=== PATIENT | female | born 1985 | race Caucasian/White ===

== ENCOUNTER → 2023-05-29 | Outpatient (CLI) | payer BC, SELFPAY ==
[2023-05-29 15:23] LABS: Prolactin 9.6 ng/mL; Thyroid Stim Hormone (TSH) 2.32 uIU/mL (0.358-3.74)
[2023-06-03 16:07] LABS: Testosterone Free 8.7 pg/mL (0.0-4.2)
== END | disposition home or self-care (01) ==
PROVIDERS: Referring Provider Nurse Practitioner Women's Health; Visit Provider Nurse Practitioner Women's Health
DX: Z31.9 Encounter for procreative management, unspecified (principal); N97.9 Female infertility, unspecified
CPT/HCPCS: 36415; 82627; 84146; 84402; 84443; 82626

== ENCOUNTER → 2023-06-13 | Outpatient (CLI) | payer BC, SELFPAY ==
[2023-06-16 08:13] LABS: Chlamydia By Nucleic Acid AMP Negative (Negative); Gonococcus By Nucleic Acid AMP Negative (Negative)
[2023-06-18 16:09] LABS: HPV APTIMA, High Risk Negative (Negative)
== END | disposition home or self-care (01) ==
PROVIDERS: Referring Provider Nurse Practitioner Women's Health; Visit Provider Nurse Practitioner Women's Health
DX: Z11.3 Encounter for screening for infections with a predominantly sexual mode of transmission (principal); Z12.4 Encounter for screening for malignant neoplasm of cervix
CPT/HCPCS: 87491; 87591; 87624; 88175; G0145

== ENCOUNTER → 2023-07-12 | Outpatient (CLI) | payer BC, SELFPAY ==
[2023-07-17 00:07] LABS: Chlamydia By Nucleic Acid AMP Negative (Negative); Gonococcus By Nucleic Acid AMP Negative (Negative)
== END | disposition home or self-care (01) ==
PROVIDERS: Referring Provider Advanced Practice Midwife; Visit Provider Advanced Practice Midwife
DX: Z34.90 Encounter for supervision of normal pregnancy, unspecified, unspecified trimester (principal); Z3A.00 Weeks of gestation of pregnancy not specified
CPT/HCPCS: 87086; 87491; 87591

== ENCOUNTER → 2023-07-26 | Outpatient (CLI) | payer BC, SELFPAY ==
[2023-07-26 09:37] LABS: Absolute Lymphocyte Count 3.01 X10^3/uL (0.83-4.51); Absolute Neutrophil Count 5.8 X10^3/uL (2.0-7.7); Basophil# 0.04 X10^3/uL; Basophil% 0.4 % (0-1); Eosinophil# 0.44 X10^3/uL; Eosinophils% 4.4 % (0-5); Hematocrit 43.8 % (37-47); Hemoglobin 14.8 g/dL (12.0-15.0); Lymphocyte # 3.01 X10^3/ul (0.83-4.51); Lymphocyte % 30.2 % (19-41); Mean Corp Hgb Conc 33.8 g/dL (32-36); Mean Corpuscular Hgb 29.8 pg (27.0-32.0); Mean Corpuscular Volume 88.3 fL (81-99); Mean Platelet Vol. 10.4 fl (6.2-12.0); Monocyte# 0.68 X10^3/uL; Monocyte% 6.8 % (0-10); NRBC Flagged by Analyzer 0 % (0-5); Neutrophil # 5.76 X10^3/uL (2.7-7.7); Neutrophil % 57.8 % (47-70); Platelet Count 212 K/mm3 (150-450); RBC Distribution Width CV 12.3 % (11.6-14.6); RBC Distribution Width SD 39.7 fl (35.1-43.9); Red Blood Count 4.96 M/mm3 (4.2-5.4)
[2023-07-26 09:52] LABS: Hemoglobin A1c 4.9 % (3.8-5.6)
[2023-07-26 10:35] LABS: HIV - WCH Non-Reactive (Nonreactive); Hepatitis B Surface Antigen Non-Reactive (Nonreactive); Hepatitis C Antibody Non-Reactive (Nonreactive); Rubella IgG Reactive (Nonreactive); Syphilis Antibodies Non-reactive
== END | disposition home or self-care (01) ==
LOC: PAVLAB 09:19
PROVIDERS: Referring Provider Advanced Practice Midwife; Visit Provider Advanced Practice Midwife
DX: Z34.90 Encounter for supervision of normal pregnancy, unspecified, unspecified trimester (principal); Z83.3 Family history of diabetes mellitus; Z3A.00 Weeks of gestation of pregnancy not specified
CPT/HCPCS: 36415; 83036; 85025; 86703; 86762; 86780; 86803; 86850; 86900; 86901; 87340

== ENCOUNTER → 2023-09-19 | Outpatient (CLI) | payer BC, SELFPAY ==
[2023-09-19 12:55] LABS: Absolute Lymphocyte Count 2.47 X10^3/uL (0.83-4.51); Absolute Neutrophil Count 5.2 X10^3/uL (2.0-7.7); Basophil# 0.02 X10^3/uL; Basophil% 0.2 % (0-1); Eosinophil# 0.26 X10^3/uL; Hematocrit 42.7 % (37-47); Hemoglobin 14.7 g/dL (12.0-15.0); Lymphocyte # 2.47 X10^3/ul (0.83-4.51); Lymphocyte % 28.8 % (19-41); Mean Corp Hgb Conc 34.4 g/dL (32-36); Mean Corpuscular Volume 87.1 fL (81-99); Mean Platelet Vol. 10.8 fl (6.2-12.0); Monocyte# 0.56 X10^3/uL; Monocyte% 6.5 % (0-10); NRBC Flagged by Analyzer 0 % (0-5); Neutrophil # 5.23 X10^3/uL (2.7-7.7); Neutrophil % 61.1 % (47-70); Platelet Count 186 K/mm3 (150-450); RBC Distribution Width CV 12.3 % (11.6-14.6); RBC Distribution Width SD 38.9 fl (35.1-43.9); White Blood Count 8.6 K/mm3 (4.4-11.0)
[2023-09-19 13:16] LABS: Protein:Creat Ratio 172 mg/g CRE (0-200)
[2023-09-19 13:35] LABS: ALB/GLOB Ratio 0.8 RATIO (0.9-2.4); AST(SGOT) 14 U/L (15-37); Alanine Aminotransfer ALT/SGPT 17 U/L (13-56); Alkaline Phosphatase 65 U/L (45-117); Anion Gap 7 (5-15); BUN 6 mg/dL (7-18); BUN/Creat Ratio 8.6 RATIO (10-20); Calcium,Total 9.1 mg/dL (8.5-10.1); Chloride 109 mmol/L (98-107); EST Glomerular Filtration Rate 100 mL/min (>60); Est Glom Filt Rate - Afr Amer 122 mL/min (>60); Globulin 3.6 g/dL (2.2-4.2); Glucose 79 mg/dL (74-106); Potassium 3.3 mmol/L (3.5-5.1); Protein, Total 6.6 g/dL (6.4-8.2); Sodium Level 140 mmol/L (136-145)
[2023-09-19 13:52] LABS: Protein, Urine (Random) 11.3 mg/dL (<11.9); Protein:Creat Ratio 130 mg/g CRE (0-200)
== END | disposition home or self-care (01) ==
PROVIDERS: Referring Provider Obstetrics & Gynecology; Visit Provider Obstetrics & Gynecology
DX: O16.9 Unspecified maternal 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, unspecified trimester (principal); Z3A.00 Weeks of gestation of pregnancy not specified
CPT/HCPCS: 36415; 80053; 82570; 84156; 85025

== ENCOUNTER → 2023-09-21 | Outpatient (CLI) | payer BC, SELFPAY ==
--- NOTE | 2023-09-21 09:02 | EKG12_ITS ---
Test Reason : MATERNAL HTN Blood Pressure : / mmHG Vent. Rate : 084 BPM Atrial Rate : 084 BPM P-R Int : 158 ms QRS Dur : 082 ms QT Int : 350 ms P-R-T Axes : 071 054 -31 degrees QTc Int : 413 ms Normal sinus rhythm with sinus arrhythmia ST & T wave abnormality, consider inferior ischemia Abnormal ECG Confirmed by ELEANOR PURI, MAKAYLA ([id number]), photograph editor MARIE GRACIA ([id number]) on 09/25/2023 2:03:37 PM Referred By: Elaine Banda Confirmed By:RASTA WEBSTER MD
== END | disposition home or self-care (01) ==
LOC: PSN 09:01
PROVIDERS: Referring Provider Obstetrics & Gynecology; Visit Provider Obstetrics & Gynecology
DX: O16.9 Unspecified maternal 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, unspecified trimester (principal)
CPT/HCPCS: 93005

== ENCOUNTER → 2023-11-19 | Outpatient (CLI) | payer BC, SELFPAY ==
--- NOTE | 2023-11-19 11:36 | US_ITS ---
EXAM: US , LIMITED CLINICAL INDICATION: Monthly growth, HTN TECHNIQUE: Real-time limited ultrasound of the maternal uterus with image documentation. COMPARISON: No relevant prior studies available. FINDINGS: FETUS: Estimated age: 25 weeks, 0 days. JOANNE: 03/03/2022. EFW: Estimated weight: 783 g (42%). BPD: 6.23 cm. HC: 23.08 cm. AC: 20.67 cm. FL: 4.53 cm. POSITION: presentation: Breech. HEART RATE: heart rate: 141 bpm. PLACENTA: Anterior placenta. AMNIOTIC FLUID: Amniotic fluid volume is normal with maximal vertical pocket of 5.2 cm. CERVIX: The cervix measures 3.3 cm and is closed. ADNEXA: The maternal adnexa are not visualized. US/OB Limited With Biometrics IMPRESSION: No acute findings. Single viable IUP of approximately 25 weeks, 0 days with a weight of 783 g. Electronically Signed: Nirmal Mehta DO at 21:15 EDT ,
== END | disposition home or self-care (01) ==
PROVIDERS: Referring Provider Obstetrics & Gynecology; Visit Provider Obstetrics & Gynecology
DX: O09.519 Supervision of elderly primigravida, unspecified trimester (principal); O16.9 Unspecified maternal 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, unspecified trimester; Z3A.00 Weeks of gestation of pregnancy not specified
CPT/HCPCS: 76816

== ENCOUNTER → 2023-11-29 | Outpatient (CLI) | payer BC, SELFPAY ==
--- NOTE | 2023-11-29 13:59 | ECHOD_ITS ---
Reason For Study: ABN EKG Procedure This was a 2D Doppler, Color Flow transthoracic echocardiogram. Exam performed in department. Left Ventricle Normal LV size. The estimated ejection fraction is 55 %. No evidence for diastolic dysfunction. No regional wall motion abnormalities noted. Right Ventricle Normal RV size. Normal systolic function. Atria The left and right atria are normal. No doppler evidence for ASD. Mitral Valve There is no mitral valve stenosis. No mitral valve insufficiency. Tricuspid Valve There is no tricuspid stenosis. Unable to estimate RV systolic pressure due to inadequate jet, pulmonary artery pressure probably normal. Aortic Valve Trisinus/trileaflet aortic valve. There is no aortic stenosis. No aortic valve insufficiency. Pulmonic Valve There is no pulmonic valvular stenosis. No pulmonic valve insufficiency. Great Vessels Normal aortic root. Pericardium/Pleural No pericardial effusion. MMode/2D Measurements & Calculations LVIDd: 4.3 cm IVSd: 1.0 cm Ao root diam: 2.8 cm LVIDs: 3.2 cm LVPWd: 1.2 cm RVDd: 3.0 cm FS: 26.2 % LAV(MOD-bp): 38.5 ml LVAd ap4: 27.8 cm2 SV(MOD-sp4): 46.7 ml LAV(MOD-bp) Indexed: 20.8 ml/m2 LVLd ap4: 8.1 cm LAV(MOD-sp2): 42.3 ml EDV(MOD-sp4): 81.7 ml LAV(MOD-sp4): 29.6 ml EDV(sp4-el): 81.1 ml LVAs ap4: 16.6 cm2 LVLs ap4: 7.0 cm ESV(MOD-sp4): 35.0 ml ESV(sp4-el): 33.1 ml EF(MOD-sp4): 57.2 % EF(sp4-el): 59.1 % SV(sp4-el): 48.0 ml LA A4 area: 12.3 cm2 LA dimension(2D): 3.5 cm RA A4 area: 10.2 cm2 TAPSE: 2.2 cm Time Measurements MV dec time: 0.10 sec Doppler Measurements & Calculations MV E max canelo: 54.4 cm/sec Lat Peak E' Canelo: 17.2 cm/sec Med Peak E' Canelo: 7.9 cm/sec MV A max canelo: 47.4 cm/sec E/E' lat: 3.2 E/E' med: 6.9 MV E/A: 1.1 MV V2 max: 55.6 cm/sec Ao V2 max: 110.8 cm/sec MV max P.2 mmHg MV dec slope: 585.8 cm/sec2 Ao max P.9 mmHg MV V2 mean: 41.1 cm/sec Ao V2 mean: 80.6 cm/sec MV mean P.72 mmHg Ao mean P.9 mmHg MV V2 VTI: 21.0 cm Ao V2 VTI: 23.5 cm AV (velocity ratio): 0.92 LV V1 max: 99.1 cm/sec PA V2 max: 90.6 cm/sec LV V1 max P.9 mmHg PA V2 mean: 63.7 cm/sec LV V1 mean P.3 mmHg LV V1 mean: 72.2 cm/sec LV V1 VTI: 21.7 cm ECHO/Echo Complete Interpretation Summary The estimated ejection fraction is 55 %. No evidence for diastolic dysfunction. Ordering Physician: Kwame Scott Referring Physician: Kwame Scott Performed By: Ankita Dumont RCS
== END | disposition home or self-care (01) ==
LOC: CVS 13:59
PROVIDERS: Referring Provider Internal Medicine Cardiovascular Disease; Visit Provider Internal Medicine Cardiovascular Disease
DX: R94.31 Abnormal electrocardiogram [ECG] [EKG] (principal)
CPT/HCPCS: 93306

== ENCOUNTER → 2023-12-07 | Outpatient (CLI) | payer BC, SELFPAY ==
[2023-12-07 13:17] LABS: Absolute Lymphocyte Count 1.99 X10^3/uL (0.83-4.51); Absolute Neutrophil Count 5.6 X10^3/uL (2.0-7.7); Basophil# 0.02 X10^3/uL; Basophil% 0.2 % (0-1); Eosinophil# 0.19 X10^3/uL; Eosinophils% 2.3 % (0-5); Hematocrit 39.2 % (37-47); Hemoglobin 13.7 g/dL (12.0-15.0); Lymphocyte # 1.99 X10^3/ul (0.83-4.51); Lymphocyte % 24.1 % (19-41); Mean Corp Hgb Conc 34.9 g/dL (32-36); Mean Corpuscular Hgb 30.6 pg (27.0-32.0); Mean Corpuscular Volume 87.7 fL (81-99); Mean Platelet Vol. 10.6 fl (6.2-12.0); Monocyte# 0.39 X10^3/uL; Monocyte% 4.7 % (0-10); NRBC Flagged by Analyzer 0 % (0-5); Neutrophil # 5.64 X10^3/uL (2.7-7.7); Neutrophil % 68.3 % (47-70); Platelet Count 170 K/mm3 (150-450); RBC Distribution Width SD 41.4 fl (35.1-43.9); Red Blood Count 4.47 M/mm3 (4.2-5.4); White Blood Count 8.3 K/mm3 (4.4-11.0)
[2023-12-07 13:34] LABS: Glucose Challenge Gest 1H 50g 126 mg/dL (70-140)
[2023-12-07 14:08] LABS: HIV - WCH Non-Reactive (Nonreactive); Syphilis Antibodies Non-reactive
== END | disposition home or self-care (01) ==
LOC: LAB 13:00
PROVIDERS: Referring Provider Obstetrics & Gynecology; Visit Provider Obstetrics & Gynecology
DX: O09.90 Supervision of high risk pregnancy, unspecified, unspecified trimester (principal); Z13.1 Encounter for screening for diabetes mellitus; Z3A.00 Weeks of gestation of pregnancy not specified
CPT/HCPCS: 36415; 82950; 85025; 86703; 86780

== ENCOUNTER → 2023-12-17 | Outpatient (CLI) | payer BC, SELFPAY ==
--- NOTE | 2023-12-17 11:50 | US_ITS ---
EXAM: US , LIMITED CLINICAL INDICATION: Monthly growth TECHNIQUE: Real-time limited ultrasound of the maternal uterus with image documentation. COMPARISON: 11/19/2023 FINDINGS: GESTATIONAL AGE: Estimated gestational age: 29 weeks, 5 days. JOANNE: 02/27/2022. EFW: Estimated weight: 1221 g (16.1%). BPD: 7.54 cm, 30 weeks, 2 days, 73%. HC: 27.92 cm, 30 weeks, 4 days, 60%. AC: 23.64 cm, 28 weeks, 0 days, 13%. FL: 5.28 cm, 28 weeks, 1 day, 11%. POSITION: Breech presentation. HEART RATE: heart rate: 148 bpm. PLACENTA: Anterior placenta. AMNIOTIC FLUID: Amniotic fluid volume is 23.3 cm with maximal vertical pocket of 7.6 cm. CERVIX: The cervix is closed measuring 4.7 cm. US/OB Limited With Biometrics IMPRESSION: Single viable IUP. Although there has been interval growth, the estimated weight is now at the 16th percentile as compared to the 42nd percentile. Electronically Signed: Nirmal Mehta DO at 21:41 EDT ,
== END | disposition home or self-care (01) ==
LOC: US 11:35
PROVIDERS: Referring Provider Obstetrics & Gynecology; Visit Provider Obstetrics & Gynecology
DX: O09.519 Supervision of elderly primigravida, unspecified trimester (principal); R94.31 Abnormal electrocardiogram [ECG] [EKG]; Z3A.00 Weeks of gestation of pregnancy not specified
CPT/HCPCS: 76816

== ENCOUNTER 2023-12-18 17:08 | Inpatient (IN) | payer BC, SELFPAY ==
[2023-12-18] VITALS (13 sets, daily range): BP systolic 136–160; BP diastolic 72–95; PULSE 74–81; O2SAT 96–97; BMI 27.4
[2023-12-18 16:01] LABS: Hematocrit 38.7 % (37-47); Hemoglobin 13.6 g/dL (12.0-15.0); Mean Corp Hgb Conc 35.1 g/dL (32-36); Mean Corpuscular Volume 88.2 fL (81-99); Mean Platelet Vol. 11.2 fl (6.2-12.0); Platelet Count 147 K/mm3 (150-450); RBC Distribution Width CV 12.9 % (11.6-14.6); RBC Distribution Width SD 41.4 fl (35.1-43.9); Red Blood Count 4.39 M/mm3 (4.2-5.4); White Blood Count 8.5 K/mm3 (4.4-11.0)
[2023-12-18 16:48] LABS: Protein, Urine (Random) 7.1 mg/dL (<11.9); Protein:Creat Ratio 285 mg/g CRE (0-200)
--- OUTSIDE RECORDS SUMMARY | 2023-12-18 16:48 | XMS RPT_ITS | CCD ---
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 Negative. Gastrointestinal: Negative. Genitourinary: Negative. Skin: Negative. Neurological: Negative. Objective BP 155/102 Pulse 80 Temp 98.3 Resp 16 Ht 5' 6 (1.68m) Wt 150 lb (68.0kg) SpO2 97% LMP 02/15/2021 BMI 24.22 kg/(m2). BP- 144/98 Physical Exam Vitals reviewed. Constitutional: General: She is not in acute distress. Appearance: Normal appearance. She is not ill-appearing, toxic-appearing or diaphoretic. HENT: Head: Normocephalic and atraumatic. Right Ear: Ear canal and external ear normal. There is no impacted cerumen. Tympanic membrane is not erythematous or bulging. Left Ear: Ear canal and external ear normal. Drainage (white drainage at base of TM) present. Tympanic membrane is not erythematous or bulging. Nose: Rhinorrhea present. Mouth/Throat: Mouth: Mucous membranes are moist. Pharynx: Oropharynx is clear. Posterior oropharyngeal erythema (post nasal drip noted) present. No oropharyngeal exudate. Eyes: General: Right eye: No discharge. Left eye: No discharge. Extraocular Movements: Extraocular movements intact. Conjunctiva/sclera : Conjunctivae normal. Pupils: Pupils are equal, round, and reactive to light. Cardiovascular: Rate and Rhythm: Normal rate and regular rhythm. Heart sounds: Normal heart sounds. No murmur heard. No friction rub. No gallop. Pulmonary: Effort: Pulmonary effort is normal. No respiratory distress. Breath sounds: Normal breath sounds. No stridor. No wheezing, rhonchi or rales. Chest: Chest wall: No tenderness. Musculoskeletal: Cervical back: Neck supple. Skin: General: Skin is warm and dry. Capillary Refill: Capillary refill takes less than 2 seconds. Neurological: Mental Status: She is alert and oriented to person, place, and time. (more content not included)... Normal [facility] Up Resp Cultureon 03-04-2021 Up Resp Culture Final report Routine respiratory yoandy Performed at: - [facility] [id number] Lemon Picker: Dwayne Estrada PhD, Phone: [phone] Normal [facility] Comment on above: Performed By: #### M [id number] #### [place] [address] PROGRESSon 04-06-2019 PROGRESS HNO ID: [id number] Author: Emerson Pacheco Service: ? Author Type: Physician Type: Progress Notes Filed: 04/06/2019 4:15 PM Note Text: [facility] [place] [address] FIRST CARE REPORT Patient: SANDRA BOONE GALEN PACHECO-EMERSON Rodríguez M.D. [id number] F Status: REG POV FC Date of Service: 04/06/19 Report Date AND Time: 04/06/19 1600 HPI History Of Present Illness Chief Complaint Urinary Pain/Problem (FC) CC History Pt has had 4 days of increased urinary frequency, urgency, blood in urine. She denies vaginal drainage or discharge, back pain, fever. No hx UTI recently. She has been drinking fluids without difficulty and increased fluids only temporarily helps the urgency. No meds. Vital Signs Vital Signs First Last Result Date Time Result Date Time Pulse Ox 98 04/06 1600 98 04/06 1600 B/P 145/92 04/06 1600 145/92 04/06 1599 Temp 98.0 04/06 1599 98.0 04/06 1599 Pulse 97 04/06 1600 97 04/06 1600 Resp 16 04/06 1600 16 04/06 1599 Medications Reported Medications . (No Home Medications) Allergies Coded Allergies: No Known Drug Allergies (04/06/19) Patient Health History Medical Problems UTI (urinary tract infection) Surgical Problems History of tonsillectomy and adenoidectomy [place] teeth removed Family History Problems No pertinent family history Social History Problems Non-smoker Occasional alcohol consumption OARRS Accessed and Reviewed NO LNMP: 03/22/2019 Advanced Directives Advanced Directives N/A Adv Dir Info Given No Review of Systems General Denies: Fever. Gastrointestinal Denies: Abdominal Pain, Nausea, Vomiting, Diarrhea. Genitourinary Urinary Frequency, Burning, Hematuria. Denies: Flank/Back Pain. Physical Examination General Alert, Non-toxic Appearance Skin [place], Warm, and Dry, Well Hydrated Heart/Cardiovascul ar Regular Rate and Rhythm, Normal S-1, S-2 Respiratory Lungs Are Clear Abdomen Bowel Sounds Present, Abdomen Soft AND Non-Tender, No CVA Tenderness Impression And Plan High Blood Pressure Your Blood Pressure was found to be higher than normal. Please see your personal physician for a checkup. High Blood Pressure can be a temporary condition or a serious condition. Special Instructions o Follow up with your Primary Care Physician in 2-3 days if no improvement in your condition. We will call you with results of urine culture. If you develop fever, back pain, if vomiting please get re-checked in Emergency. o [facility] experience problems relating to your visit or call [phone]. All medications and their side effects were explained to the patient and were understood. At home instructions were explained to the patient and were understood. Report to the [facility] Emergency Department if any further problems occur. Diagnosis 1. UTI (urinary tract infection) *Laboratory Microbiology Date/Time Procedure - Status Source Growth 04/06 1550 Urine Culture - RECD URINE *Prescriptions Prescriptions (GALEN) Medication Dose/Rte/Freq Days Qty Entered Max Daily Dose Cephalexin* (Keflex*) 500 MG PO Q12H 14 04/06/19 Strength: 500 MG CAP 1613 04/06/19 1614 JENNIFER PACHECO M.D. << Signature on File>> Reported By: JENNIFER PACHECO M.D. Signed By: JENNIFER PACHECO M.D. Tests performed at: [address] [address] Normal [facility] Encounters Encounter Date Encounter Type Care Provider Facility Start: 10-11-2023 End: 10-11-20[facility] Start: 01-03-2023 End: [address] BRANDIN BADILLO DO Facility:[facility] Start: 01-03-2023 End: 01-03-[address] BRANDIN BADILLO DO [facility] Start: 10-15-2022 End: 10-16-2022 Emergency department patient visit DR BRANDIN BADILLO DO Facility:[facility] Procedures Date Procedure Procedure Detail Performing Clinician Start: 02-27-[address] BRANDIN BADILLO DO Payers Date Payer Category Payer Unknown [id number] 2022 Unknown [id number] 1987 Unknown [id number] 1987 Unknown [id number] 1987 Unknown [id number] Social History Date Type Detail Facility Start: 05-09-2019 Tobacco smoking status Never s moked tobacco (finding) [facility] Sex Assigned At Sex [facility] Progress note 03-04-2021 Note Date & Type Note Facility 03-04-2021 Note HNO ID: [id number] Author: Ayo Lutz APRN.CORRECTIONAL OFFICER SERGEANT Service: ? Author Type: Nurse Practitioner Type: Progress Notes Filed: 03/04/2021 6:35 PM Note Text: March 04, 2021 Subjective Chief Complaint: Sore Throat (sx for three weeks, sore throat, Ibuprofen, Tylenol, Naproxen, Nyquil) HPI: Sandra Adorno is a 36 year old female who presents today for 3 week history of sore throat. Patient states initially she had sinus congestion/drainage, chest congestion, sore throat, and coughing. States everything has resolved except the sore throat. States she was discussing her sore throat with co-workers and they [facility] Patient denies any fever, chills, body aches, abdominal pain, nausea, vomiting, or diarrhea. Eating and drinking as norm. States the sore throat is worse at night and in the mornings. Sleeps with 2 pillows. Has taken Nyquil, Tylenol, and Naproxen has been attempted. History reviewed. No pertinent past medical history. History reviewed. No pertinent surgical history. History reviewed. No pertinent family history. Social History Tobacco Use - Smoking status: Never Smoker - Smokeless tobacco: Never Used Substance Use Topics - Alcohol use: Not on file - Drug use: Not on file ALLERGIES No Known Allergies There is no immunization history on file for this patient. Current Medications: TRI-SPRINTEC 0.18/0.215/0.25 mg-35 mcg (28) Take 1 tablet by mouth once daily. loratadine (CLARITIN) 10 mg tablet 10 mg. glucosamine/chondr longo A sod (GLUCOSAMINE-CHONDROITIN) 1,500-1,200 mg/30 mL liqd Dose = 2 cap(s), Oral, qDay, 0 Refill(s) multivit with min-folic acid (ONE-A-DAY WOMEN VITACRAVES) 200 mcg chew Dose = 1 tab(s), Oral, qDay, 0 Refill(s) predniSONE (DELTASONE) 20 mg tablet Take 1 tablet by mouth twice daily for 5 days. wivstjaybzCOKVW-chgzkt-khklnfclr (BMX 1:1:1) 1:1:1 liqd Take 10 mL by mouth every 6 hours as needed. Gargle and Spit. Do NOT swallow Review of Systems Constitutional: Negative for chills, fever and malaise/fatigue. HENT: Positive for congestion (resolved) and sore throat. Negative for ear pain. Eyes: Negative. Respiratory: Positive for cough (resolved). Negative for hemoptysis, sputum production, shortness of breath and wheezing. Cardiovascular: Negative. Gastrointestinal: Negative. Genitourinary: Negative. Skin: Negative. Neurological: Negative. Objective BP 155/102 Pulse 80 Temp 98.3 Resp 16 Ht 5' 6 (1.68m) Wt 150 lb (68.0kg) SpO2 97% LMP 02/15/2021 BMI 24.22 kg/(m2). BP- 144/98 Physical Exam Vitals reviewed. Constitutional: General: She is not in acute distress. Appearance: Normal appearance. She is not ill-appearing, toxic-appearing or diaphoretic. HENT: Head: Normocephalic and atraumatic. Right Ear: Ear canal and external ear normal. There is no impacted cerumen. Tympanic membrane is not erythematous or bulging. Left Ear: Ear canal and external ear normal. Drainage (white drainage at base of TM) present. Tympanic membrane is not erythematous or bulging. Nose: Rhinorrhea present. Mouth/Throat: Mouth: Mucous membranes are moist. Pharynx: Oropharynx is clear. Posterior oropharyngeal erythema (post nasal drip noted) present. No oropharyngeal exudate. Eyes: General: Right eye: No discharge. Left eye: No discharge. Extraocular Movements: Extraocular movements intact. Conjunctiva/sclera: Conjunctivae normal. Pupils: Pupils are equal, round, and reactive to light. Cardiovascular: Rate and Rhythm: Normal rate and regular rhythm. Heart sounds: Normal heart sounds. No murmur heard. No friction rub. No gallop. Pulmonary: Effort: Pulmonary effort is normal. No respiratory distress. Breath sounds: Normal breath sounds. No stridor. No wheezing, rhonchi or rales. Chest: Chest wall: No tenderness. Musculoskeletal: Cervical back: Neck supple. Skin: General: Skin is warm and dry. Capillary Refill: Capillary refill takes less than 2 seconds. Neurological: Mental Status: She is alert and oriented to person, place, and time. Psychiatric: Mood and Affect: Mood normal. Behavior: Behavior normal. Thought Content: Thought content normal. Judgment: Judgment normal. ASSESSMENT/PLAN: 1. Sore throat - ICD9: 462, ICD10: J02.9 (primary diagnosis) - suspect viral - Rapid Strep negative in the office today - Discussed supportive care treatment with fluids, rest and analgesia. - The patient may also use OTC cough and cold meds as needed, warm salt water gargles, throat lozenges and/or OTC throat spray as needed and nasal saline gtts and suction prn. - Contagious dz precautions discussed- including considered contagious until on antibiotics for 24 hours - The patient should follow up in 3-5 days if symptoms persist or worsen - Call back if drooling, increased temperature, symptoms of dehydration and/or still sick in one week - RAPID STRE (more content not included)... [facility] Evaluation + Plan note Note Date & Type Note Facility Evaluation + Plan note No data available for this section [facility] Hospital Discharge instructions Note Date & Type Note Facility Hospital Discharge instructions No data available for this section [facility] Progress note Note Date & Type Note Facility Progress note No data available for this section [facility] Summary Purpose Family History No Family History Records FoundNo Family History Records FoundNo Family History Records Found No data available for this section No Family History Records FoundNo Family History Records Found Advance Directives No Advanced Directives Records FoundNo Advanced Directives Records FoundNo Advanced Directives Records FoundNo Advanced Directives Records FoundNo Advanced Directives Records Found Additional Source Comments INFORMATION SOURCE (unrecogn ized section and content) DATE CREATED AUTHOR 04/06/2019 [facility] DATE CREATED AUTHOR AUTHOR'S ORGANIZ ATION 03/17/2021 [facility] DATE CREATED AUTHOR AUTHOR'S ORGANIZ ATION 05/22/2021 [facility] DATE CREATED AUTHOR AUTHOR'S ORGANIZ ATION 2023 [facility] [place] DATE CREATED AUTHOR AUTHOR'S ORGANIZ ATION 10/13/2023 [facility] Patient Care team informatio n (unrecognized section and content) Care Team Personnel Name: BRANDIN BADILLO Position: P4 Physician - Primary Care Member Role: Primary Care Physician Address: Address: [address] [place] [id number] [place] [address] Care Team Related Persons Name: KYREE HUNTER FOR RECORDS PERTAINING TO PATIENTS WHO ARE OR HAVE BEEN ENROLLED IN A CHEMICAL DEPENDENCY/SUBSTANCEABUSE PROGRAM, SOME INFORMATION MAY BE OMITTED. This clinical summary was aggregated from multiple sources. Caution should be exercised in using it in the provision of clinical care. This summary normalizes information from multiple sources, and as a consequence, information in this document may materially change the coding, format and clinical context of patient data. In addition, data may be omitted in some cases. CLINICAL DECISIONS SHOULD BE BASED ON THE PRIMARY CLINICAL RECORDS. [employer] provides no warranty or guarantee of the accuracy or completeness of information in this document.
[2023-12-18 16:49] LABS: AST(SGOT) 20 U/L (15-37); Alanine Aminotransfer ALT/SGPT 21 U/L (13-56); Creatinine, Serum 0.56 mg/dL (0.55-1.02); EST Glomerular Filtration Rate 131 mL/min (>60); Est Glom Filt Rate - Afr Amer 158 mL/min (>60); Estimated Creatinine Clearance 145.62 ml/min; Uric Acid 3.8 mg/dL (2.6-6.0)
--- NOTE | 2023-12-18 17:05 | HP.PCM.OB_ITS ---
HPI - General General Date of Service: 12/18/23 HPI Narrative DALIA ADORNO, is a 38 F at 29.2 weeks who presents to unit with elevated bps at home. Hx of 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. pre eclampsia labs drawn. Denies headache, dizziness, blurred vision and RUQ pain. Blood pressures and preeclampsia labs reviewed with Dr Hickman. Plan for overnight observation, repeat labs in the morning, Betamethasone, VS q 2 hours and a 24 hour urine. Maternal Data Information JOANNE Calculator Estimated Delivery Date Method Current WG Current Estimate 03/02/24 LMP (Certain) 29w 2d Other Estimates 02/24/24 Ultrasound #2 30w 2d Final JOANNE: 03/02/24 Final JOANNE Source: [place] >20 weeks Gestational age: 29.2 [facility] Medical History Hypertension Migraines (06/28/20) Bone fracture (11/03/98) no medical history Home Medications ?Medication ?Instructions ?Recorded ?Last Taken ?Type docosahexaenoic acid 200 mg mg PO 05/23/23 12/18/23 10:00 History capsule ( DHA) 200 mg cholecalciferol (vitamin D3) 25 25 mcg PO DAILY 06/29/23 12/18/23 10:00 History mcg (1,000 unit) capsule 25 mcg coQ10 (ubiquinol) 100 mg capsule 100 mg PO BID 06/29/23 12/18/23 10:00 History (Qunol Eric CoQ10) 100 mg aspirin 81 mg tablet,delayed 81 mg PO DAILY 10/23/23 12/17/23 22:00 History release (Adult Aspirin Regimen) 81 mg labetalol 200 mg tablet 200 mg PO BID #180 tabs 11/07/23 12/18/23 10:00 Rx 200 mg Allergy/AdvReac Type Severity Reaction Status Date / Time nifedipine AdvReac headache Verified 12/18/23 15:39 Family History Father Diabetes Hypertension Heart disease Myocardial infarction Mother Hypertension Surgical History S/P wisdom tooth extraction S/P tonsillectomy Social History adopted: No household members: spouse number of children: 0 current occupational status: employed 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; 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; 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 current occupational exposures/hazards: No pets and animals: Yes (1 dog) pets and animals: dog(s) leisure activities: exercise, games and reading history of recent travel: No sexually active: Yes Smoking Status: Never smoker second hand exposure: No alcohol intake: former substance use type: does not use well-balanced diet: about half the time caffeine: Yes (Cut back since ) Type: coffee and tea eating out: 1-3 times/week during the past year weight has: remained stable what type of physical activity do you participate in: walking and aerobics frequency: 1-2 times per week duration: 15-30 minutes/day rachel/scientology: Moravian seatbelt use: always do you feel safe at home: Yes additional social history: - 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- Chrissy History 1 Elective abortions Hx Para 0 Spontaneous abortions Hx # Term Pregnancies Ectopic pregnancies Hx # Pregnancies Multiple births # of living children Visit Details Expected Delivery Route/Plan Labor Preferences- CB/BF classes: talked about that 12/11 labor support person: labor intervention preferences: [] pain management options preferred: would like to avoid medication if possible cut cord/dad catch: undecided : prefers breast feeding PP control planned: [] discussed possible routes of delivery and associated risks: [] special requests: peaceful atmosphere Plans Covid status: [] Flu vaccine: [] Tdap vaccine: [] Rhogam: [] LARC form signed: [] Problem list reviewed and updated with the most current plan of care details and appropriate orders placed. Relevant counseling for the gestational age provided. Continue routine care and follow up unless otherwise noted in visit notes/problem list details OB Flowsheet Initial Weight: Not Recorded Date -?-?-?-?-?-?-?-?-?-?-?-?- EGA Weight BP Urine Prot -?-?-?-?-?-?-?-?-?-?-?-?- Glucose FHR FuHt Pres Dilation -?-?-?-?-?-?--?-?-?-?-?-?- Effaced St Visit Note 07/12/23 -?-?-?-?-?-?-?-?-?-?-?-?- 6w 4d 158 lb 8 oz 129/87 -?-?-?-?-?-?-?-?-?-?-?-?- 133 -?-?-?-?-?-?-?-?-?-?-?-?- KW- CRL cons wit h dates. Considering NIPT. 07/26/23 -?-?-?-?-?-?-?-?-?-?-?-?- 8w 4d 161 lb 4 oz 132/80 Nega tive -?-?-?-?-?-?-?-?-?-?-?-?- Negative 176 -?-?-?-?-?-?-?-?-?-?-?-?- KW- CRL cons wit h dates. doing well. labs today 08/21/23 -?-?-?-?-?-?-?-?-?-?-?-?- 12w 2d 160 lb 2 oz 148/93 Nega tive -?-?-?-?-?-?-?-?-?-?-?-?- Negative 161 167 -?-?-?-?-?-?--?-?-?-?-?-?- JV- normal PNL. declines genetic JV- normal PNL. declines gen etics. measuring a week ahead today. states LMP is certain. 09/19/23 -?-?-?-?-?-?-?-?-?-?-?-?- 16w 3d 159 lb 8 oz 158/102 Nega tive -?-?-?-?-?-?-?-?-?-?-?-?- Negative 150 -?-?-?-?-?-?-?-?-?-?-?-?- SM- no vb crampi ng SM- no vb cramping reviewed diagnosis, ordered baseline labs, start procardia, [facility] home health consult ordered 10/15/23 -?-?-?-?-?-?-?-?-?-?-?-?- 20w 1d 163 lb 6 oz 137/85 Nega tive -?-?-?-?-?-?-?-?-?-?-?-?- Negative 156 -?-?-?-?-?-?-?-?-?-?-?-?- JV- normal anato my scan. bp at home stable on labetalol. Needs montly growth scans and start testing when MFM recommends, likely 32 weeks 11/14/23 -?-?-?-?-?-?-?-?-?-?-?-?- 24w 3d 165 lb 135/78 -?-?-?-?-?-?-?-?-?-?-?-?- 150 -?-?-?-?-?-?-?-?-?-?-?-?- SM- no vb lof go od fm no regular ctx bp controlled 12/12/23 -?-?-?-?-?-?-?-?-?-?-?-?- 28w 3d 169 lb 6 oz 131/88 Nega tive -?-?-?-?-?-?-?-?-?-?-?-?- Negative 145 28 -?-?-?-?-?-?-?-?-?-?-?-?- JV- no lof, vagi nal bleeding, or dec fm. thinking about tdap. NST FHR Rate Baby A Baseline: 145 Uterine Activity:: none ROS Constitutional Constitutional: Denies change in weight, fatigue, fever(s), headache(s), poor appetite or weakness Eyes Eyes: Denies blurry vision, change in vision, floaters, seeing flashes or spots in vision ENT HEENT: Denies dizziness, headache(s), loss taste/smell or sore throat Cardiovascular Cardiovascular: Denies chest pain, dizziness, dyspnea, irregular heart rhythm, lightheadedness, palpitations or rapid heart rate Respiratory/Chest Respiratory/Chest: Denies change in mental status, chest tightness, cough, dyspnea or breast pain Gastrointestinal Gastrointestinal: Denies anorexia, chewing difficulty, constipation, diarrhea or weight changes Genitourinary Genitourinary: Denies difficulty urinating, dysuria, flank pain, genital pain, urinary frequency or urinary urgency Musculoskeletal Musculoskeletal: Denies back pain, difficulty walking, extremity pain, joint pain, muscle cramps or muscle weakness Integumentary Integumentary: Denies lesions or unusual bruising Neurologic Neurologic: Denies abnormal movements, abnormal speech, dizziness, numbness, seizure-like activity, syncope or weakness Psychiatric Psychiatric: Denies behavioral changes, change in appetite, confusion, depression, homicidal ideation, suicidal ideation or suicidal thoughts Endocrine Endocrinology: Denies excessive sweating, polydipsia or polyuria Hematologic/Lymphatic Hematologic/Lymphatic: Denies anemia Allergic/Immunologic Allergic/Immunologic: Denies itchy eyes, lip swelling, throat swelling, tongue swelling or wheezing Vital Signs Vital Signs Vital Signs: 12/18/23 15:45 12/18/23 15:45 12/18/23 15:59 Pulse Rate 74 Blood Pressure 148/87 H 147/82 H BP Systolic 148 147 BP Diastolic 87 82 12/18/23 15:59 12/18/23 16:14 12/18/23 16:14 Pulse Rate 75 74 Blood Pressure 138/88 H BP Systolic 138 BP Diastolic 88 12/18/23 16:29 12/18/23 16:29 12/18/23 16:44 Pulse Rate 78 Blood Pressure 145/93 H 149/95 H BP Systolic 145 149 BP Diastolic 93 95 12/18/23 16:44 12/18/23 17:00 12/18/23 17:00 Pulse Rate 80 74 Blood Pressure 136/72 H BP Systolic 136 BP Diastolic 72 Weight Weight: 169 lb 15.622 oz Body Mass Index (BMI) 27.4 Physical Exam Const alert, oriented x3 and no apparent distress General Appearance: cooperative Orientation / Consciousness: awake HEENT normocephalic Neck full ROM Lymph Lymphatic: no lymphadenopathy noted Chest inspection of chest normal Resp normal respiratory effort and normal air movement Effort and Inspection: able to speak in complete sentences and symmetric chest movement GI soft to palpation and non-tender Inspection: gravid Palpation: soft; Negative for tender external exam normal Back/Spine normal to inspection Extremity normal to inspection and full ROM Skin no rashes or lesions noted Psych mental status grossly normal Appearance: grossly normal Speech: normal speech Labs Labs Labs: Blood Type O POSITIVE Antibody Screen NEGATIVE Hct 38.7 % (37-47) Hgb 13.6 g/dL (12.0-15.0) Obstetrics Ultrasound Syphilis Total Ab Non-reactive Rubella IgG Antibody Reactive (Nonreactive) Hep Bs Antigen Non-Reactive (Nonreactive) Hepatitis C Antibody Non-Reactive (Nonreactive) Chlamydia DNA (NOÉ) Negative (Negative) N.gonorrhoeae DNA (NOÉ) Negative (Negative) HIV 1&2 Antibody Non-Reactive (Nonreactive) Glucose 1 Hr 50 gm 126 mg/dL (70-140) Assessment & Plan (1) Gestational thrombocytopenia: COMMENT: pre e labs results to , celestone, increase labetalol consider transfer to [place] (2) Abnormal EKG: COMMENT: echo ordered (3) Hypertension affecting : COMMENT: diagnosed first trimester, sees cardio. on labetalol. home bp tracking from baseline labs ordered, 81mg ASA recommended. START NSTs AT 32 WEEKS MONTHLY GROWTH SCANS PLAN: plan repeat labs in am celestone x 2 24 hour urine increase labetalol to [address] Hickman notified of assessment and labs, VS. Will be assuming care at this time (4) Supervision of high-risk : COMMENT: PRR,, JOANNE 03/02/24, boy : Evgeny (5) : QUALIFIERS: Weeks of gestation: 28 weeks Qualified Code(s): Z3A.28 - 28 weeks gestation of COMMENT: Declined ntd genetic/carrier screening (6) AMA (advanced maternal age) primigravida 35+: COMMENT: declined genetic screening. screening per cHTN guidelines. Charges/Coding Multi Select Codes Visit Charges Office Visit/Consults: 01811 OV L3 Est 20min Urinary/Genital Urinary/Genital CPT Codes: 18564-15 non-stress test Interp
[2023-12-18] MEDS: Labetalol 200 MG Tablet 300 MG PO (17:52)
[2023-12-18] MEDS: 0.9% Saline Lock 10 ML Syringe IV ×2 (17:52→22:37)
[2023-12-18] MEDS: Betamethasone/Betamethasone 30 MG/5 ML Vial 12 MG IM (17:54)
[2023-12-19] VITALS (21 sets, daily range): BP systolic 129–152; BP diastolic 66–99; PULSE 77–113; RESP 15–18; TEMP 36.7–37.6; O2SAT 94–99
[2023-12-19 04:56] LABS: Hematocrit 38.9 % (37-47); Hemoglobin 13.7 g/dL (12.0-15.0); Mean Corp Hgb Conc 35.2 g/dL (32-36); Mean Corpuscular Hgb 31.3 pg (27.0-32.0); Mean Corpuscular Volume 88.8 fL (81-99); Mean Platelet Vol. 11.2 fl (6.2-12.0); Platelet Count 163 K/mm3 (150-450); RBC Distribution Width CV 12.9 % (11.6-14.6); Red Blood Count 4.38 M/mm3 (4.2-5.4); White Blood Count 12.2 K/mm3 (4.4-11.0)
[2023-12-19 05:13] LABS: AST(SGOT) 17 U/L (15-37); Alanine Aminotransfer ALT/SGPT 22 U/L (13-56); Creatinine, Serum 0.57 mg/dL (0.55-1.02); EST Glomerular Filtration Rate 127 mL/min (>60); Est Glom Filt Rate - Afr Amer 154 mL/min (>60); Estimated Creatinine Clearance 143.07 ml/min; LDH 153 U/L (84-246); Uric Acid 3.4 mg/dL (2.6-6.0)
[2023-12-19] MEDS: Labetalol 200 MG Tablet 300 MG PO ×3 (06:28→22:22)
--- NOTE | 2023-12-19 11:36 | PN.OBGYN_ITS ---
Subjective Subjective patient did well overnight no VAN BV nausea vomiting RUQ pain, good fm no regular ctx Objective Data Objective Data Vital Signs: Vital Signs Pulse Resp BP Pulse Ox 99 16 137/86 H 98 12/19/23 11:10 12/19/23 09:45 12/19/23 11:10 12/19/23 09:45 Weight: 169 lb 15.622 oz Body Mass Index (BMI) 27.4 Intake & Output: Intake and Output for Last 24 Hours 12/17/23 12/18/23 12/19/23 23:59 23:59 23:59 Output Total 600 / 600 Balance -600 / -600 Lab / Micro Data 12/19/23 04:40 12/19/23 04:40 Labs: Laboratory Results - last 24 hr 12/18/23 15:50: WBC 8.5, RBC 4.39, Hgb 13.6, Hct 38.7, MCV 88.2, MCH 31.0, MCHC 35.1, RDW Std Deviation 41.4, RDW Coeff of Christal 12.9, Plt Count 147 L, MPV 11.2, Creatinine 0.56, Estim Creat Clear Calc 145.62, Est GFR (MDRD) Af Amer 158, Est GFR (MDRD) Non-Af 131, Uric Acid 3.8, AST 20, ALT 21, U Random Total Protein 7.1, Urine Creatinine 24.90, Protein/Creatinin Ratio 285 H 12/19/23 04:40: WBC 12.2 H, RBC 4.38, Hgb 13.7, Hct 38.9, MCV 88.8, MCH 31.3, MCHC 35.2, RDW Std Deviation 42.0, RDW Coeff of Christal 12.9, Plt Count 163, MPV 11.2, Creatinine 0.57, Estim Creat Clear Calc 143.07, Est GFR (MDRD) Af Amer 154, Est GFR (MDRD) Non-Af 127, Uric Acid 3.4, AST 17, ALT 22, Lactate Dehydrogenase 153 12/19/23 04:40: Lactate Dehydrogenase Cancelled ROS Constitutional Constitutional: Reports systems reviewed and no addt'l complaints, except as documented Eyes Eyes: Denies change in vision ENT HEENT: Reports systems reviewed and no addt'l complaints, except as documented; Denies headache(s) Cardiovascular Cardiovascular: Reports systems reviewed and no addt'l complaints, except as documented; Denies chest pain or dyspnea Respiratory/Chest Respiratory/Chest: Reports systems reviewed and no addt'l complaints, except as documented Gastrointestinal Gastrointestinal: Reports systems reviewed and no addt'l complaints, except as documented; Denies abdominal pain Genitourinary Genitourinary: Reports systems reviewed and no addt'l complaints, except as documented, contractions Details: present (irregular) and movement Details: present; Denies dysuria or genital lesions Musculoskeletal Musculoskeletal: Reports systems reviewed and no addt'l complaints, except as documented Neurologic Neurologic: Reports systems reviewed and no addt'l complaints, except as documented Endocrine Endocrinology: Reports systems reviewed and no addt'l complaints, except as documented Physical Exam Const alert, oriented x3, no apparent distress and healthy appearing HEENT normocephalic and moist oral mucous membranes Head and Scalp: atraumatic Neck full ROM, no lymphadenopathy, supple and thyroid normal General: trachea midline Lymph Lymphatic: no lymphadenopathy noted Chest inspection of chest normal Resp normal respiratory effort Cardio regular rate GI soft to palpation and non-tender Inspection: gravid Extremity normal to inspection General Extremity: Negative for edema Skin no rashes or lesions noted Neuro no focal motor deficits and deep tendon reflexes 2+ bilaterally Motor Exam: strength 5/5 throughout and clonus absent Psych mental status grossly normal NST FHR Rate Baby A Baseline: 130 Variability:: Moderate Accelerations:: 15 x 15 Decelerations:: Variable (isolated, GA approrpiate) NST Reactive:: Yes FHR Category:: Category I Uterine Activity:: no regular Assessment & Plan (1) Hypertension affecting : COMMENT: sto 12/17, inc labetalol to 300 TID added hydralazine. celestone given. serial labs monitored. diagnosed first trimester, sees cardio. on labetalol. home bp tracking from baseline labs ordered, 81mg ASA recommended. START NSTs AT 32 WEEKS MONTHLY GROWTH SCANS (2) Supervision of high-risk : COMMENT: PRR,, JOANNE 03/02/24, boy : Evgeny (3) : QUALIFIERS: Weeks of gestation: 28 weeks Qualified Code(s): Z 3A.28 - 28 weeks gestation of COMMENT: Declined ntd genetic/carrier screening (4) AMA (advanced maternal age) primigravida 35+: COMMENT: declined genetic screening. screening per [place] guidelines. (5) Abnormal EKG: COMMENT: echo ordered PLAN: Plan STO for elevated bps and borderline labs, repeat WNL. celestone course given. await 24 hour urine and follow bps with addition of hydralazine.
[2023-12-19] MEDS: hydrALAZINE 10 MG Tablet PO ×3 (12:04→22:21)
[2023-12-19 17:29] LABS: 24 Hour Urine Protein 442.2 mg/24HR (<150 MG/24HR); 24HR. UA Prot. Total Volume 3300 mL; Urine Protein (24 Hour) 13.4 mg/dL (<11.9)
--- NOTE | 2023-12-19 17:43 | PCM.PN.BLA ---
Progress Note bps better controlled, hydralazine added. 24 hour urine in reeclampsia range. repeat labs now to confirm stability.
[2023-12-19 17:50] LABS: Absolute Lymphocyte Count 2.31 X10^3/uL (0.83-4.51); Absolute Neutrophil Count 13.1 X10^3/uL (2.0-7.7); Basophil# 0.02 X10^3/uL; Basophil% 0.1 % (0-1); Hematocrit 39.3 % (37-47); Hemoglobin 13.3 g/dL (12.0-15.0); Lymphocyte # 2.31 X10^3/ul (0.83-4.51); Lymphocyte % 13.9 % (19-41); Mean Corp Hgb Conc 33.8 g/dL (32-36); Mean Corpuscular Hgb 30.3 pg (27.0-32.0); Mean Corpuscular Volume 89.5 fL (81-99); Mean Platelet Vol. 11.5 fl (6.2-12.0); Monocyte# 1.08 X10^3/uL; Monocyte% 6.5 % (0-10); NRBC Flagged by Analyzer 0 % (0-5); Neutrophil # 13.05 X10^3/uL (2.7-7.7); Neutrophil % 78.8 % (47-70); Platelet Count 175 K/mm3 (150-450); RBC Distribution Width CV 13.2 % (11.6-14.6); RBC Distribution Width SD 42.8 fl (35.1-43.9); Red Blood Count 4.39 M/mm3 (4.2-5.4); White Blood Count 16.6 K/mm3 (4.4-11.0)
[2023-12-19 18:16] LABS: ALB/GLOB Ratio 0.8 RATIO (0.9-2.4); AST(SGOT) 20 U/L (15-37); Alanine Aminotransfer ALT/SGPT 23 U/L (13-56); Albumin, Serum 2.9 g/dL (3.2-5.0); Alkaline Phosphatase 84 U/L (45-117); Anion Gap 6 (5-15); BUN 12 mg/dL (7-18); BUN/Creat Ratio 14.4 RATIO (10-20); Calcium,Total 9.2 mg/dL (8.5-10.1); Chloride 109 mmol/L (98-107); Creatinine, Serum 0.84 mg/dL (0.55-1.02); EST Glomerular Filtration Rate 82 mL/min (>60); Est Glom Filt Rate - Afr Amer 99 mL/min (>60); Estimated Creatinine Clearance 97.08 ml/min; Globulin 3.7 g/dL (2.2-4.2); Glucose 119 mg/dL (74-106); Potassium 3.9 mmol/L (3.5-5.1); Protein, Total 6.6 g/dL (6.4-8.2); Sodium Level 135 mmol/L (136-145); Uric Acid 3.8 mg/dL (2.6-6.0)
[2023-12-19] MEDS: Betamethasone/Betamethasone 30 MG/5 ML Vial 12 MG IM (19:48)
[2023-12-19] MEDS: 0.9% Saline Lock 10 ML Syringe IV (19:48)
[2023-12-20] VITALS (65 sets, daily range): BP systolic 104–152; BP diastolic 66–92; PULSE 68–120; RESP 13–23; TEMP 36.5–37.4; O2SAT 96–99
--- NOTE | 2023-12-20 | MASS_PTH ---
PATHOLOGY RESULTS PATIENT: DALIA ADORNO LOC: WP U#:[id number] AGE/SX: 38/F ROOM: [facility] RE12/20/[address]: Dr. Mariama Tam DO : 1985 BED: 1 DIS: 12/22/2023 SPEC #: [id number] RECD: 12/20/23 11:56 STATUS: NANCY BUCHANANBethanie #: [id number] BELA: 12/20/23 00:[address]: Mariama Tam DEPT: SURGICAL PATHOLOGY RECD BY: Scottie Bardales ENTERED: 12/20/23 12:06 SP TYPE: Mass OTHR DR: Dr. Giuliana Mazariegos DO Tissues: Uterine cervix, NOS Procedures: Surgery Specimen Level IV HEADER OPERATION: Not noted PRE-OP DIAGNOSIS: C- section TISSUE SUBMITTED: Uterine mass MICROSCOPIC DIAGNOSIS Uterine mass, excision: Leiomyoma. See cordelia. 12/21/2023 COMMENT Focal decidual changes are noted adjacent to the leiomyoma. MICROSCOPIC DESCRIPTION Slides are reviewed. GROSS DESCRIPTION Received is one container labeled with the patient's name and not further designated. The specimen consists of a piece of gutiérrez-pink nodule measuring 1.5 x 1.2 x 1.0cm and weighing 1gm. Sections reveal gutiérrez whorled cut surfaces without areas of hemorrhage, necrosis or cystic degeneration. The entire specimen is submitted in one cassette. 12/20/2023 TC:1 CPT:10591
[2023-12-20] MEDS: hydrALAZINE 10 MG Tablet PO (06:13)
[2023-12-20] MEDS: Labetalol 200 MG Tablet 300 MG PO (06:13)
[2023-12-20] MEDS: 0.9% Saline Lock 10 ML Syringe IV ×2 (06:18→08:55)
[2023-12-20 06:35] LABS: Absolute Neutrophil Count 12.3 X10^3/uL (2.0-7.7); Basophil# 0.02 X10^3/uL; Basophil% 0.1 % (0-1); Eosinophil# 0.01 X10^3/uL; Eosinophils% 0.1 % (0-5); Hematocrit 38.1 % (37-47); Hemoglobin 12.9 g/dL (12.0-15.0); Lymphocyte % 12.2 % (19-41); Mean Corp Hgb Conc 33.9 g/dL (32-36); Mean Corpuscular Hgb 30.5 pg (27.0-32.0); Mean Corpuscular Volume 90.1 fL (81-99); Mean Platelet Vol. 11.7 fl (6.2-12.0); Monocyte# 0.51 X10^3/uL; Monocyte% 3.4 % (0-10); NRBC Flagged by Analyzer 0 % (0-5); Neutrophil # 12.29 X10^3/uL (2.7-7.7); Neutrophil % 83.1 % (47-70); Platelet Count 168 K/mm3 (150-450); RBC Distribution Width CV 13.2 % (11.6-14.6); RBC Distribution Width SD 43.1 fl (35.1-43.9); Red Blood Count 4.23 M/mm3 (4.2-5.4); White Blood Count 14.8 K/mm3 (4.4-11.0)
[2023-12-20 07:02] LABS: ALB/GLOB Ratio 0.8 RATIO (0.9-2.4); AST(SGOT) 14 U/L (15-37); Alanine Aminotransfer ALT/SGPT 23 U/L (13-56); Albumin, Serum 2.8 g/dL (3.2-5.0); Alkaline Phosphatase 83 U/L (45-117); Anion Gap 8 (5-15); BUN 13 mg/dL (7-18); BUN/Creat Ratio 18.5 RATIO (10-20); Calcium,Total 8.7 mg/dL (8.5-10.1); Chloride 111 mmol/L (98-107); EST Glomerular Filtration Rate 100 mL/min (>60); Est Glom Filt Rate - Afr Amer 121 mL/min (>60); Globulin 3.6 g/dL (2.2-4.2); Glucose 136 mg/dL (74-106); Potassium 4.1 mmol/L (3.5-5.1); Protein, Total 6.4 g/dL (6.4-8.2); Sodium Level 138 mmol/L (136-145)
--- NOTE | 2023-12-20 07:30 | US_ITS ---
STUDY: OBSTETRICAL ULTRASOUND - BIOPHYSICAL PROFILE REASON FOR EXAM: Female, 38 years old to ensure well being LMP: Not provided. PRIOR ULTRASOUND: 12/17/2023. TECHNIQUE: Transabdominal. TECHNICAL QUALITY: Adequate. FINDINGS: There is a single intrauterine fetus. The fetus is in a cephalic presentation. There is demonstrated cardiac activity with a heart rate of 150 bpm. There is a normal amniotic fluid volume. The largest amniotic fluid pocket measures 4.9 cm. The amniotic fluid index (YEHUDA) is 14.3 cm. The placenta is anterior end not low-lying. There are Grade 1 placental changes. Age by LMP: 29 weeks, 4 days. JOANNE by LMP: 03/02/2024. age by prior US: 29 weeks, 5 days. JOANNE by prior US: 02/27/2024. Gender: Male. BIOPHYSICAL PROFILE: Breathing Movements (FBM): 2 Gross Body Movements (GBM): 2 Tone (FT): 2 Amniotic Fluid Volume (AFV): 2 TOTAL SCORE: 8 / 8 US/Biophysical Prof W/O Non Stres IMPRESSION: Normal biophysical profile of 8/8 and without significant change. Electronically Signed: Shaji Boyd MD at 9:41 EDT ,
--- NOTE | 2023-12-20 08:03 | PN.OBGYN_ITS ---
Subjective Subjective Patient is sitting up in bed. She just returned from her BPP, which was 8/8. She denies headache or visual changes. We reviewed the tracing as I did with Dr. Sena from [facility] and the decision is made to proceed with transport to [facility]. Objective Data Objective Data Vital Signs: Vital Signs Temp Pulse Resp BP Pulse Ox 98.4 F 77 18 150/85 H 98 12/20/23 06:11 12/20/23 06:29 12/20/23 06:11 12/20/23 06:13 12/20/23 06:29 Weight: 169 lb 15.622 oz Body Mass Index (BMI) 27.4 Intake & Output: Intake and Output for Last 24 Hours 12/18/23 12/19/23 12/20/23 23:59 23:59 23:59 Output Total 600 / 600 Balance -600 / -600 Lab / Micro Data 12/20/23 06:23 12/20/23 06:23 Labs: Laboratory Results - last 24 hr 12/19/23 15:05: Urine Collection Time 24.0, Timed Urine Volume 3300, Ur Total Protein 24 Hr 442.2 H, Urine Total Protein 13.4 H 12/19/23 17:40: WBC 16.6 H, RBC 4.39, Hgb 13.3, Hct 39.3, MCV 89.5, MCH 30.3, MCHC 33.8, RDW Std Deviation 42.8, RDW Coeff of Christal 13.2, Plt Count 175, MPV 11.5, Immature Gran % (Auto) 0.700, Neut % (Auto) 78.8 H, Lymph % (Auto) 13.9 L, Forest % (Auto) 6.5, Eos % (Auto) 0.0, Baso % (Auto) 0.1, Absolute Neuts (auto) 13.1 H, Absolute Lymphs (auto) 2.31, Nucleated RBC % 0, Sodium 135 L, Potassium 3.9, Chloride 109 H, Carbon Dioxide 21.0, Anion Gap 6, BUN 12, Creatinine 0.84, Estim Creat Clear Calc 97.08, Est GFR (MDRD) Af Amer 99, Est GFR (MDRD) Non-Af 82, BUN/Creatinine Ratio 14.4, Glucose 119 H, Uric Acid 3.8, Calcium 9.2, Total Bilirubin 0.20, AST 20, ALT 23, Alkaline Phosphatase 84, Total Protein 6.6, A lbumin 2.9 L, Globulin 3.7, Albumin/Globulin Ratio 0.8 L 12/20/23 06:23: WBC 14.8 H, RBC 4.23, Hgb 12.9, Hct 38.1, MCV 90.1, MCH 30.5, MCHC 33.9, RDW Std Deviation 43.1, RDW Coeff of Christal 13.2, Plt Count 168, MPV 11.7, Immature Gran % (Auto) 1.100 H, Neut % (Auto) 83.1 H, Lymph % (Auto) 12.2 L, Forest % (Auto) 3.4, Eos % (Auto) 0.1, Baso % (Auto) 0.1, Absolute Neuts (auto) 12.3 H, Absolute Lymphs (auto) 1.80, Nucleated RBC % 0, Sodium 138, Potassium 4.1, Chloride 111 H, Carbon Dioxide 19.0 L, Anion Gap 8, BUN 13, Creatinine 0.70, Estim Creat Clear Calc 116.50, Est GFR (MDRD) Af Amer 121, Est GFR (MDRD) Non-Af 100, BUN/Creatinine Ratio 18.5, Glucose 136 H, Calcium 8.7, Total Bilirubin 0.30, AST 14 L, ALT 23, Alkaline Phosphatase 83, Total Protein 6.4, A lbumin 2.8 L, Globulin 3.6, Albumin/Globulin Ratio 0.8 L ROS Constitutional Constitutional: Denies change in weight, fatigue, fever(s), headache(s), poor appetite or weakness Eyes Eyes: Denies blurry vision, change in vision, seeing flashes or spots in vision ENT HEENT: Denies dizziness, headache(s), loss taste/smell or sore throat Cardiovascular Cardiovascular: Denies chest pain, dizziness, dyspnea, irregular heart rhythm, leg edema, palpitations, rapid heart rate or vomiting Respiratory/Chest Respiratory/Chest: Denies chest tightness, cough, dyspnea or breast pain Gastrointestinal Gastrointestinal: Denies abdominal pain, anorexia, constipation, cramping, diarrhea, hemorrhoids, vomiting or weight changes Genitourinary Genitourinary: Denies dysuria, flank pain, genital lesions, genital pain, urinary frequency or urinary urgency Musculoskeletal Musculoskeletal: Denies back pain, difficulty walking, joint pain, limited range of motion, muscle cramps or numbness Integumentary Integumentary: Denies lesions or unusual bruising Neurologic Neurologic: Denies abnormal movements, abnormal speech, dizziness, numbness, seizure-like activity or syncope Psychiatric Psychiatric: Denies anxiety, behavioral changes, change in appetite, cognitive impairment, confusion, depression or difficulty concentrating Physical Exam Const alert, oriented x3, no apparent distress and healthy appearing General Appearance: cooperative; Negative for anxious HEENT normocephalic Face and Sinus: normal facial exam Eyes EOMs intact bilaterally and no scleral icterus General Eye: normal appearance of both eyes Neck full ROM and supple Resp normal respiratory effort Effort and Inspection: able to speak in complete sentences GI soft to palpation and non-tender Inspection: gravid Palpation: soft; Negative for tender Extremity normal to inspection, full ROM and no clubbing, cyanosis or edema General Extremity: Negative for calf tenderness or edema Skin Lesions: no lesions Rashes: no rashes Psych mental status grossly normal NST FHR Rate Baby A Baseline: 140 Variability:: Moderate Accelerations:: 10 x 10 Decelerations:: Variable FHR Category:: Category II Uterine Activity:: contractions noted q 5 minutes for last hour. Assessment & Plan (1) Chronic 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 with superimposed pre-eclampsia: COMMENT: celestone given 12/17 and 12/18. serial labs and bps monitored. hydralazine added for bp control. plan twice weekly testing with alternating bpp and nst, weekly labs rest of . (2) Abnormal EKG: COMMENT: echo ordered (3) Hypertension affecting : COMMENT: [facility] 12/17, inc labetalol to 300 TID added hydralazine. celestone given. serial labs monitored. diagnosed first trimester, sees cardio. on labetalol. home bp tracking from baseline labs ordered, 81mg ASA recommended. START NSTs AT 32 WEEKS MONTHLY GROWTH SCANS (4) Supervision of high-risk : COMMENT: PRR,, JOANNE 03/02/24, boy : Evgeny (5) : QUALIFIERS: Weeks of gestation: 28 weeks Qualified Code(s): Z 3A.28 - 28 weeks gestation of COMMENT: Declined ntd genetic/carrier screening (6) AMA (advanced maternal age) primigravida 35+: COMMENT: declined genetic screening. screening per cHTN guidelines. PLAN: Plan plan for transport to L&D start magnesium 4 gram bolus followed by 2 grams/hr.
[2023-12-20] MEDS: Lactated Ringers 1,000 ML 30 ML IV (08:50)
[2023-12-20] MEDS: Magnesium Sulfate 4gm/100mL 4 GM/100 ML IV.SOLN. IV (08:50)
[2023-12-20] MEDS: Magnesium Sulfate 20 GM/500 ML BAG IV ×3 (09:06→23:54)
[2023-12-20] MEDS: Lactated Ringers 1,000 ML 999 ML IV (09:35)
[2023-12-20] MEDS: Sodium Citrate/Citric Acid 30 ML UDC PO (09:45)
[2023-12-20 09:48] LABS: Absolute Lymphocyte Count 2.53 X10^3/uL (0.83-4.51); Absolute Neutrophil Count 13.5 X10^3/uL (2.0-7.7); Basophil# 0.05 X10^3/uL; Basophil% 0.3 % (0-1); Eosinophil# 0.01 X10^3/uL; Eosinophils% 0.1 % (0-5); Hematocrit 39.9 % (37-47); Hemoglobin 13.7 g/dL (12.0-15.0); Lymphocyte # 2.53 X10^3/ul (0.83-4.51); Lymphocyte % 14.7 % (19-41); Mean Corp Hgb Conc 34.3 g/dL (32-36); Mean Corpuscular Hgb 30.9 pg (27.0-32.0); Mean Corpuscular Volume 90.1 fL (81-99); Mean Platelet Vol. 11.6 fl (6.2-12.0); Monocyte# 0.84 X10^3/uL; Monocyte% 4.9 % (0-10); NRBC Flagged by Analyzer 0.1 % (0-5); Neutrophil # 13.49 X10^3/uL (2.7-7.7); Neutrophil % 78.4 % (47-70); Platelet Count 182 K/mm3 (150-450); RBC Distribution Width CV 13.2 % (11.6-14.6); RBC Distribution Width SD 42.9 fl (35.1-43.9); Red Blood Count 4.43 M/mm3 (4.2-5.4); White Blood Count 17.2 K/mm3 (4.4-11.0)
[2023-12-20] MEDS: Cefazolin 2 GM in Syringe IV (09:57)
[2023-12-20 10:04] LABS: International Normalized Ratio 0.9; Prothrombin Time (Protime)PT. 11.9 SECONDS (11.7-14.9)
[2023-12-20 10:25] LABS: Syphilis Antibodies Non-reactive
--- NOTE | 2023-12-20 10:47 | OP.PCM_ITS ---
Assessment & Plan (1) heart rate decelerations affecting management of mother: (2) Chronic 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 with superimposed pre-eclampsia: COMMENT: celestone given 12/17 and 12/18. serial labs and bps monitored. hydralazine added for bp control. plan twice weekly testing with alternating bpp and nst, weekly labs rest of . (3) Abnormal EKG: COMMENT: echo ordered (4) Hypertension affecting : COMMENT: sto 12/17, inc labetalol to 300 TID added hydralazine. celestone given. serial labs monitored. diagnosed first trimester, sees cardio. on labetalol. home bp tracking from baseline labs ordered, 81mg ASA recommended. START NSTs AT 32 WEEKS MONTHLY GROWTH SCANS (5) Supervision of high-risk : COMMENT: PRR,, JOANNE 03/02/24, boy : Evgeny (6) : QUALIFIERS: Weeks of gestation: 28 weeks Qualified Code(s): Z3A.28 - 28 weeks gestation of COMMENT: Declined ntd genetic/carrier screening (7) AMA (advanced maternal age) primigravida 35+: COMMENT: declined genetic screening. screening per [place] guidelines. Maternal Data Information JOANNE Calculator Estimated Delivery Date Method Current WG Current Estimate 03/02/24 LMP (Certain) 29w 4d Other Estimates 02/24/24 Ultrasound #2 30w 4d Operative Report (OB) Cecarean Details Procedure Type: low transverse Surgeon: Mariama Tam Date of Procedure: 12/20/23 Procedure Start Time: 10:06 Procedure Stop Time: 10:36 Time of Delivery: 10:09 Pre-Operative Diagnosis: Distress Post-Operative Diagnosis: Same as Pre-operative diagnosis Classification: Stat Type of Anesthesia: Spinal Antibiotic Given: Ancef 2 grams IV x1 Drain: Aguilera to straight drain Estimated Blood Loss: 500cc Findings Description of surgery: decelerations were noted (variable in nature) prior to setting up transport to [place] for pre-eclampsia superimposed on chronic 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. The tracing then showed a variable deceleration that lead into a prolonged deceleration. The decision was made to cancel the transport and after discussion with MFM, the decision was made to proceed with a stat section. Spinal anesthesia was placed without difficulty. Aguilera catheter was placed. The patient was placed in the dorsal supine position with leftward tilt. Patient was prepped and draped in the normal sterile fashion. Pfannenstiel skin incision was made with the scalpel and carried through to the underlying layer of fascia with the scalpel. Fascia was nicked in the midline and the incision extended laterally. The rectus bellies were dissected off superiorly and inferiorly with out complication both sharply and bluntly. The peritoneum was entered digitally. The incision was stretched and a low transverse uterine incision was made with the scalpel. The 's head was delivered atraumatically followed by the anterior and posterior shoulders without complication the rest of the delivered. The cord was clamped and cut and the infant was handed off to awaiting nurse. The placenta was delivered spontaneously immediately following and was noted to be intact and have a three- vessel cord. One section of the placenta appeared beefy read and somewhat detached. This was noted to be the site of the placental abruption. The uterus was exteriorized cleared of all clots and debris. There was noted to be a 1 cm f irm nodule that was cliped off using metztembaum scissions and was sent for pathology analysis. The incision was closed in a double layer closure using #1 Vicryl then#1 Monocryl. The ovaries and fallopian tubes were noted to be within normal limits. The uterus was returned to the maternal abdomen and gutters were cleared of all clots and debris. The peritoneum was closed with 3-0 Monocryl in a running fashion. Fascia was closed with 0 PDS in a running fashion. Subcutaneous tissue was copiously irrigated and the skin was closed with 3-0 Monocryl in a subcuticular fashion. Mepilex dressing was applied without complication. Patient was taken to recovery in stable condition. Surgical findings: viable male . apgars 7/8, placental abruption, submucosal uterine fibroid. Presentation: Vertex Amniotic Membrane Rupture Type: Artificial Amniotic Fluid Description: Clear Placental Delivery Description: Expressed Placenta Disposition: Sent with transport team Specimen collected: Yes Description of specimen(s) removed: uterine fibroid/mass Cord Vessel Description: 3 Vessels Cord Entanglement: None Cord Gases: ABG and VBG A gender: Male (1 minute): 7 (5 minute): 8 Delayed Cord Clamping: No Locomotive Pipe Fitter project management director: Yes Cotton Inspector: Brady Moody Tasks completed by engineer first assistant: Closing, Hemostasis: Clamp, Hemostasis: Tie, Trocar and Retracting Additional academic support assistant?: No Complications Complications: No Admit VTE Documentation VTE Present on Admission: No VTE Mechan Device Prophylaxis: SCD's VTE Pharm Prophylaxis Ordered: Yes Multi Select Codes Urinary/Genital Urinary/Genital CPT Codes: 26025 Delivery [facility]
[2023-12-20] MEDS: Oxytocin 15 Units/NS 250ml 15 UNITS/250 ML IV.SOLN 83 UNITS IV (11:00)
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
[2023-12-20 11:30] LABS: Pathology Specimen Additional SEE PATHOLOGY REPORT
[2023-12-20 11:41] LABS: Fibrinogen 508 mg/dl (203-444)
[2023-12-20] MEDS: Acetaminophen 500 MG Tablet 1000 MG PO ×3 (12:24→23:52)
[2023-12-20] MEDS: Ketorolac 30 MG/ML Syringe IV ×3 (12:24→23:53)
[2023-12-20] MEDS: Labetalol 200 MG Tablet PO ×2 (13:42→22:15)
--- NOTE | 2023-12-20 18:24 | NURSING ---
1819 dr dunham into see pt- made aware of brisk reflexes, clonus, and low urine output- orders received
[2023-12-20 19:01] LABS: Absolute Lymphocyte Count 2.37 X10^3/uL (0.83-4.51); Absolute Neutrophil Count 14.7 X10^3/uL (2.0-7.7); Basophil# 0.03 X10^3/uL; Basophil% 0.2 % (0-1); Eosinophil# 0.49 X10^3/uL; Eosinophils% 2.6 % (0-5); Hematocrit 37.4 % (37-47); Hemoglobin 12.7 g/dL (12.0-15.0); Lymphocyte # 2.37 X10^3/ul (0.83-4.51); Lymphocyte % 12.4 % (19-41); Mean Corpuscular Hgb 30.9 pg (27.0-32.0); Mean Platelet Vol. 11.6 fl (6.2-12.0); Monocyte# 1.38 X10^3/uL; Monocyte% 7.2 % (0-10); NRBC Flagged by Analyzer 0 % (0-5); Neutrophil # 14.68 X10^3/uL (2.7-7.7); Neutrophil % 76.5 % (47-70); Platelet Count 178 K/mm3 (150-450); RBC Distribution Width CV 13.4 % (11.6-14.6); RBC Distribution Width SD 43.7 fl (35.1-43.9); Red Blood Count 4.11 M/mm3 (4.2-5.4); White Blood Count 19.2 K/mm3 (4.4-11.0)
--- NOTE | 2023-12-20 19:05 | NURSING ---
1100 when transfered to WP 13 from OR 1- anes. had a 500 cc bag of lr infusing at 25 cc hr- continued infusion while Magnesium is infusing into primary line of LR; placenta and maternal blood tube was given to Leanne from [facility]- paper in chart
[2023-12-20 19:31] LABS: ALB/GLOB Ratio 0.8 RATIO (0.9-2.4); AST(SGOT) 22 U/L (15-37); Alanine Aminotransfer ALT/SGPT 24 U/L (13-56); Albumin, Serum 2.7 g/dL (3.2-5.0); Alkaline Phosphatase 80 U/L (45-117); Anion Gap 6 (5-15); BUN 15 mg/dL (7-18); BUN/Creat Ratio 18.7 RATIO (10-20); Chloride 108 mmol/L (98-107); EST Glomerular Filtration Rate 86 mL/min (>60); Est Glom Filt Rate - Afr Amer 104 mL/min (>60); Estimated Creatinine Clearance 101.94 ml/min; Globulin 3.4 g/dL (2.2-4.2); Glucose 114 mg/dL (74-106); Potassium 4.5 mmol/L (3.5-5.1); Protein, Total 6.1 g/dL (6.4-8.2); Sodium Level 136 mmol/L (136-145)
[2023-12-20] MEDS: Enoxaparin 40 MG/0.4 ML Syringe SC (23:04)
[2023-12-21] VITALS (19 sets, daily range): BP systolic 121–145; BP diastolic 74–88; PULSE 63–89; RESP 16–18; TEMP 36.3–36.9; O2SAT 98–100
[2023-12-21] MEDS: SimETHICONE 80 MG Chewable Tablet PO ×4 (00:11→19:44)
[2023-12-21 05:23] LABS: Hematocrit 35.4 % (37-47); Hemoglobin 11.7 g/dL (12.0-15.0); Mean Corp Hgb Conc 33.1 g/dL (32-36); Mean Corpuscular Hgb 30.4 pg (27.0-32.0); Mean Corpuscular Volume 91.9 fL (81-99); Mean Platelet Vol. 11.8 fl (6.2-12.0); Platelet Count 147 K/mm3 (150-450); RBC Distribution Width CV 13.2 % (11.6-14.6); RBC Distribution Width SD 44.4 fl (35.1-43.9); Red Blood Count 3.85 M/mm3 (4.2-5.4); White Blood Count 13.8 K/mm3 (4.4-11.0)
[2023-12-21] MEDS: Ketorolac 30 MG/ML Syringe IV (06:07)
[2023-12-21] MEDS: Labetalol 200 MG Tablet PO ×3 (06:07→22:35)
[2023-12-21] MEDS: Acetaminophen 500 MG Tablet 1000 MG PO ×3 (06:07→18:12)
[2023-12-21] MEDS: 0.9% Saline Lock 10 ML Syringe IV ×2 (06:07→08:30)
--- NOTE | 2023-12-21 09:50 | PCM.PN.OB ---
Subjective Subjective Patient is laying in bed comfortably without complaints. She states that she slept on an off during the night. Lochia is mild and pain is minimal. Objective Data Objective Data Vital Signs: Vital Signs Temp Pulse Resp BP Pulse Ox O2 Del Method 97.7 F L 72 18 139/85 H 99 Room Air 12/21/23 08:00 12/21/23 08:34 12/21/23 08:00 12/21/23 08:34 12/21/23 08:00 12/21/23 08:00 Oxygen Delivery Method Room Air Weight: 169 lb 15.622 oz Body Mass Index (BMI) 27.4 Intake & Output: Intake and Output for Last 24 Hours 12/19/23 12/20/23 12/21/23 23:59 23:59 23:59 Intake Total 2679.59 / 2754.59 1122.67 / 1122.67 Output Total 1780 / 2280 2600 / 2600 Balance 899.59 / 474.59 -1477.33 / -1477.33 Lab / Micro Data 12/21/23 04:00 12/20/23 18:45 Labs: Laboratory Results - last 24 hr 12/20/23 09:40: PT 11.9, INR 0.9, APTT 23.0 L, Fibrinogen 508 H, Syphilis Total Ab Non-reactive, Blood Type O POSITIVE, Antibody Screen NEGATIVE, Crossmatch See Detail 12/20/23 18:45: WBC 19.2 H, RBC 4.11 L, Hgb 12.7, Hct 37.4, MCV 91.0, MCH 30.9, MCHC 34.0, RDW Std Deviation 43.7, RDW Coeff of Christal 13.4, Plt Count 178, MPV 11.6, Immature Gran % (Auto) 1.100 H, Neut % (Auto) 76.5 H, Lymph % (Auto) 12.4 L, Sharkey % (Auto) 7.2, Eos % (Auto) 2.6, Baso % (Auto) 0.2, Absolute Neuts (auto) 14.7 H, Absolute Lymphs (auto) 2.37, Nucleated RBC % 0, Sodium 136, Potassium 4.5, Chloride 108 H, Carbon Dioxide 23.0, Anion Gap 6, BUN 15, Creatinine 0.80, Estim Creat Clear Calc 101.94, Est GFR (MDRD) Af Amer 104, Est GFR (MDRD) Non-Af 86, BUN/Creatinine Ratio 18.7, Glucose 114 H, Calcium 8.0 L, Total Bilirubin 0.10 L, AST 22, ALT 24, Alkaline Phosphatase 80, Total Protein 6.1 L, Albumin 2.7 L, Globulin 3.4, Albumin/Globulin Ratio 0.8 L 12/21/23 04:00: WBC 13.8 H, RBC 3.85 L, Hgb 11.7 L, Hct 35.4 L, MCV 91.9, MCH 30.4, MCHC 33.1, RDW Std Deviation 44.4 H, RDW Coeff of Christal 13.2, Plt Count 147 L, MPV 11.8 ROS Constitutional Constitutional: Reports systems reviewed and no addt'l complaints, except as documented Cardiovascular Cardiovascular: Denies chest pain, dizziness, dyspnea or irregular heart rhythm Respiratory/Chest Respiratory/Chest: Denies cough, pain on inspiration or shortness of breath at rest Gastrointestinal Gastrointestinal: Denies abdominal pain, nausea or vomiting Genitourinary Genitourinary: Denies burning urination Musculoskeletal Musculoskeletal: Denies muscle cramps, muscle spasms or muscle weakness Neurologic Neurologic: Denies confusion, dizziness, headache(s) or lack of coordination Psychiatric Psychiatric: Denies anxiety, behavioral changes or depression Physical Exam HEENT normocephalic Resp normal respiratory effort and normal air movement GI soft to palpation, non-tender and non-distended Rectal Exam: other Other Details: Incision is clean, dry, and intact no CVA tenderness Extremity normal to inspection General Extremity: edema bilateral (trace ) Assessment & Plan (1) heart rate decelerations affecting management of mother: (2) Chronic 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 with superimposed pre-eclampsia: COMMENT: celestone given 12/17 and 12/18. serial labs and bps monitored. hydralazine added for bp control. plan twice weekly testing with alternating bpp and nst, weekly labs rest of . (3) Abnormal EKG: COMMENT: echo ordered (4) Hypertension affecting : COMMENT: sto 12/17, inc labetalol to 300 TID added hydralazine. celestone given. serial labs monitored. diagnosed first trimester, sees cardio. on labetalol. home bp tracking from baseline labs ordered, 81mg ASA recommended. START NSTs AT 32 WEEKS MONTHLY GROWTH SCANS (5) Status post section: COMMENT: status post cs 29 weeks abruption (6) AMA (advanced maternal age) primigravida 35+: COMMENT: declined genetic screening. screening per [place] guidelines. PLAN: Plan s/p LTCS PPD # 1 1. routine post care 2. breast feeding- support given. colostrom being collected and brought to her baby in [employer]. 3. rh positive 4. rubella immune 5. severe pre-e resolving. stop mag today but continue with labetalol. if pressures are stable will allow early dc to see her baby.
--- NOTE | 2023-12-21 09:53 | DCINST_ITS ---
Discharge Instructions Diet Discharge Diet: No restrictions Activity Discharge Activity: May Not Drive (for 2 weeks or while taking narcotic pain medications.), May Shower and May Take a Tub Bath (in 7 days.) May resume sexual activity in: 4-6 weeks Weight Bearing Status: Full weight bearing Lifting Restrictions: 20 pounds Dressing / Incision Call your doctor if your incision/area has: Continuous Slow Oozing, Sudden Increased Bleeding, Increased Pain/ Swelling, Increased Redness and Foul Smelling Discharge Call your doctor if you observe: Fever of 101 or Higher and Using more than 1 pad per hour Suture Line Care: Avoid Pulling/Pushing and Avoid Pinching/Bending Cleanse incision/area with: Soap & Water and Keep Dressing Clean & Dry Follow Up Care Please Follow Up With: Mariama Tam DO When: Call [phone] to make an appointment for an incision check in 1-2 weeks. Test Results: Test results from this visit will be discussed in further detail at your follow- up appointment, if applicable. Discharge Plan Admission Admit Date/Time: 12/20/23 10:09 Primary Reason for Your Visit: decreased FM Attending Provider: Mariama Tam Primary Care Provider: Giuliana Mazariegos Instructions Patient Instructions: Understanding Preeclampsia Discharge Orders/Prescriptions Prescriptions: New ibuprofen 800 mg tablet 800 mg PO Q8H PRN (Reason: pain) Qty: 30 0RF Continued DHA 200 mg capsule PO cholecalciferol (vitamin D3) 25 mcg (1,000 unit) capsule 25 mcg PO DAILY coQ10 (ubiquinol) [Qunol Eric CoQ10] 100 mg capsule 100 mg PO BID aspirin [Adult Aspirin Regimen] 81 mg tablet,delayed release (DR/EC) 81 mg PO DAILY labetalol 200 mg tablet 200 mg PO BID Qty: 180 3RF Referrals / Follow Up: Giuliana Mazariegos DO [Primary Care Provider] - Disposition Disposition (needs filled in before D/C Order can be placed): Home, Self Care
[2023-12-21] MEDS: Ibuprofen 600 MG Tablet PO ×2 (12:17→18:12)
[2023-12-21] MEDS: Senna/Docusate Sodium 1 Tablet PO (12:18)
--- NOTE | 2023-12-21 14:32 | CASEMGMT ---
Labor and Delivery [employer] Consult received due to maternal anxiety. Sw presented to bedside and introduced self to mother of baby (PRITESH Flores). Sw introduced self and explained sw role. Maternal grandma also present and observed to be a positive support for MOB. MOB is 38 year old female who is 1, parar 0-1 following labor and delivery. MOB delivered via emergency on 12/20/23 at 29 weeks gestation. baby required transfer to [facility] NICU. Sw asked MOB how she is doing. MOB states that she is tired and was hoping that she can take a nap prior to leaving the hospital and going to [place]. Sw provided MOB with list of county resources and discussed signs and symptoms of baby blues and mood and anxiety disorders to be mindful of during this time. MOB expressed understanding and states that she has a good support team and people she knows she can talk to if she feels as though she is struggling. Sw provided active listening and emotional support. MOB to be discharged today to be with baby who requires admission to [facility] NICU. Miladis Koroma, [employer], AIR INTELLIGENCE SPECIALIST
[2023-12-22] VITALS (8 sets, daily range): BP systolic 142–152; BP diastolic 77–85; PULSE 69–79; RESP 14–16; TEMP 36.6–36.9; O2SAT 96–100
[2023-12-22] MEDS: Ibuprofen 600 MG Tablet PO ×2 (00:10→06:14)
[2023-12-22] MEDS: Acetaminophen 500 MG Tablet 1000 MG PO ×2 (00:10→06:14)
[2023-12-22] MEDS: Labetalol 200 MG Tablet PO (06:14)
--- NOTE | 2023-12-22 08:13 | PCM.PN.CNM ---
Subjective Subjective Patient doing well without complaints. Tolerating PO. Ambulating and voiding without difficulty. Feeding well. Denies chest pain, shortness of breath, calf pain/swelling, fevers, chills, lightheadedness.denies headaches, visual changes or ruq pain. Objective Data Objective Data BP mild range overnight. Vital Signs: Vital Signs Temp Pulse Resp BP Pulse Ox O2 Del Method 98.5 F 75 16 143/84 H 96 Room Air 12/22/23 03:36 12/22/23 07:59 12/22/23 03:36 12/22/23 07:59 12/22/23 03:36 12/22/23 03:36 Oxygen Delivery Method Room Air Weight: 169 lb 15.622 oz Body Mass Index (BMI) 27.4 Intake & Output: Intake and Output for Last 24 Hours 12/20/23 12/21/23 12/22/23 23:59 23:59 23:59 Intake Total 2679.59 / 2754.59 1122.67 / 1122.67 Output Total 1780 / 2280 3100 / 3100 Balance 899.59 / 474.59 -1976.33 / -1976.33 Lab / Micro Data 12/21/23 04:00 12/20/23 18:45 Physical Exam HEENT normocephalic Resp normal respiratory effort and normal air movement GI soft to palpation, non-tender and non-distended Rectal Exam: other Other Details: Incision is clean, dry, and intact no CVA tenderness Extremity normal to inspection General Extremity: edema bilateral (trace ) Assessment & Plan (1) Status post section: COMMENT: status post cs 29 weeks abruption (2) Chronic 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 with superimposed pre-eclampsia: COMMENT: celestone given 12/17 and 12/18. serial labs and bps monitored. hydralazine added for bp control. PLAN: Plan s/p LTCS PPD # 2 1. routine post care 2. breast feeding- support given, exclusively pumping 3. rh positive 4. rubella immune 5. d/c home today
[2023-12-22] MEDS: Senna/Docusate Sodium 1 Tablet PO (10:04)
[2023-12-22] MEDS: SimETHICONE 80 MG Chewable Tablet PO (10:04)
--- NOTE | 2023-12-25 07:53 | NURSING ---
Amended Op Report to CHANDRA from Stat c/s per Dr. Tam's decision. stated that baby's heart rate recovered and patient was able to receive a spinal for anesthesia. An Lopez RN
== END 2023-12-22 11:40 | disposition home or self-care (01) | DRG 788 ==
LOC: WPOUT 17:09 → WP 17:10
PROVIDERS: Advanced Practice Midwife; Obstetrics & Gynecology; Admitting Provider Obstetrics & Gynecology; Referring Provider Obstetrics & Gynecology; Visit Provider Obstetrics & Gynecology
DX: O11.4 Pre-existing 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 with pre-eclampsia, complicating childbirth (principal); Z3A.29 29 weeks gestation of pregnancy; O45.93 Premature separation of placenta, unspecified, third trimester; I10 Essential (primary) hypertension; O34.13 Maternal care for benign tumor of corpus uteri, third trimester; D25.9 Leiomyoma of uterus, unspecified; O76 Abnormality in fetal heart rate and rhythm complicating labor and delivery; Z37.0 Single live birth; Z79.82 Long term (current) use of aspirin
CPT/HCPCS: 59050; 76819; 80053; 82565; 82570; 83615; 84156; 84450; 84460; 84550; 85025; 85027; 85384; 85610; 85730; 86780; 86850; 86900; 86901; 86920; 88305; J7120; A4216; J0702; J2405

== ENCOUNTER → 2024-10-31 | Outpatient (CLI) | payer BC, SELFPAY ==
--- NOTE | 2024-10-31 | LES_PTH ---
PATIENT: DALIA ADORNO LOC: [facility] U#:[id number] AGE/SX: 39/F ROOM: RE10/31/[address]: Dr. Norman Wolff MD : [id number] BED: DIS: 10/31/2024 SPEC #: [id number] RECD: 10/31/24 10:23 STATUS: NANCY JAVIER #: [id number] BELA: 10/31/24 00:[address]: Norman Wolff DEPT: SURGICAL PATHOLOGY RECD BY: Aakash Corrigan Tissues: A - Skin of eyelid, NOS Procedures: Surgery Specimen Level IV HEADER OPERATION: Lesion removal left lower eyelid PRE-OP DIAGNOSIS: Left lower eyelid, likely nevus TISSUE SUBMITTED: A- Left lower eyelid, marginal lesion MICROSCOPIC DIAGNOSIS A. Skin, left lower eyelid, marginal lesion, biopsy: - Intradermal nevus - see note. Note: No malignant change is observed in these sections. The lesion involves the surgical margin. If this biopsy represents only a portion of a larger lesion, the findings may not be customer account representative. Clinical correlation is necessary. MICROSCOPIC DESCRIPTION Slides are reviewed. GROSS DESCRIPTION A. Received in formalin labeled with the patient's name and date of . Designated as left lower eyelid are 3 [id number]-pink to red tissue fragments, 0.1 cm to 0.2 cm. Entirely submitted in 1 cassette. Entirety of the specimen may not survive processing. [id number]
== END | disposition home or self-care (01) ==
LOC: LABSPEC 10:50
PROVIDERS: Referring Provider Ophthalmology; Visit Provider Ophthalmology
DX: D23.122 Other benign neoplasm of skin of left lower eyelid, including canthus (principal)
CPT/HCPCS: 88305